=== PATIENT | female | born 1985 | race Two or more races ===

== ENCOUNTER 2017-09-17 16:16 | Emergency (ER) | payer MEDICAID, OTHER, SELFPAY ==
[~2017-09-17] VITALS: Ht 154.9 cm; Wt 98.0 kg
[2017-09-17 16:17] VITALS: BP 135/90
[2017-09-17] MEDS ORDERED: FAMOTIDINE 20 MG TABLET PO ONE (17:00)
[2017-09-17] MEDS ORDERED: DIPHENHYDRAMINE 25 MG CAPSULE PO ONE (17:00)
[2017-09-17] MEDS ORDERED: FAMOTIDINE 20 MG TABLET ONE (17:08)
[2017-09-17] MEDS ORDERED: DIPHENHYDRAMINE 25 MG CAPSULE ONE (17:08)
[2017-09-17] MEDS ORDERED: EPINEPHRINE 1 MG/ML, 1ML ONE (17:28)
[2017-09-17] MEDS ORDERED: EPINEPHRINE 1 MG/ML, 1ML IM ONE (18:00)
== END 2017-09-17 18:59 | disposition home or self-care (01) ==
LOC: ED 18:28
DX: T78.3XXA Angioneurotic edema, initial encounter (principal); X58.XXXA Exposure to other specified factors, initial encounter; Y93.89 Activity, other specified; Y92.89 Other specified places as the place of occurrence of the external cause; Y99.8 Other external cause status
CPT/HCPCS: 96372; 99283; J0171; Q0163

== ENCOUNTER 2017-09-18 10:38 | Emergency (ER) | payer MEDICAID ==
[~2017-09-18] VITALS: Ht 154.9 cm; Wt 99.0 kg
[2017-09-18] MEDS ORDERED: EPINEPHRINE 1 MG/ML, 1ML IM ONE (11:30)
[2017-09-18] MEDS ORDERED: SODIUM CHLORIDE FLUSH 10ML SYR IVF ONE (11:30)
[2017-09-18] MEDS ORDERED: DIPHENHYDRAMINE 50 MG/ML, 1ML IVPush ONE (11:30)
[2017-09-18] MEDS ORDERED: FAMOTIDINE 20 MG/2 ML IVPush ONE (11:30)
[2017-09-18] MEDS ORDERED: EPINEPHRINE 1 MG/ML, 1ML ONE (11:35)
[2017-09-18] MEDS ORDERED: FAMOTIDINE 20 MG/2 ML ONE (11:35)
[2017-09-18] MEDS ORDERED: DIPHENHYDRAMINE 50 MG/ML, 1ML ONE (11:35)
[2017-09-18 11:49] LABS: HEMATOCRIT 48.8 % (34.6-47.8); HEMOGLOBIN 16.9 g/dL (11.7-16.4); WHITE BLOOD COUNT 20.6 x10^3/uL (3.4-10)
[2017-09-18 11:58] LABS: BLOOD UREA NITROGEN 14 mg/dL (7-18)
[2017-09-18] MEDS ORDERED: OMNIPAQUE 350 MG/ML, 75ML BOTTLE ONE (12:06)
[2017-09-18 13:28] VITALS: BP 107/62
== END 2017-09-18 13:38 | disposition home or self-care (01) ==
LOC: ED 11:02
DX: T78.3XXA Angioneurotic edema, initial encounter (principal); E78.5 Hyperlipidemia, unspecified; J45.909 Unspecified asthma, uncomplicated; Z88.0 Allergy status to penicillin; Z88.1 Allergy status to other antibiotic agents; Z88.5 Allergy status to narcotic agent; Z88.6 Allergy status to analgesic agent; X58.XXXA Exposure to other specified factors, initial encounter; Y93.89 Activity, other specified; Y99.8 Other external cause status; Y92.89 Other specified places as the place of occurrence of the external cause
CPT/HCPCS: 36415; 70487; 80048; 82040; 85025; 96372; 96374; 96375; 99285; J0171; J1200; J7512; Q9967; S0028

== ENCOUNTER 2020-05-15 00:03 | Emergency (ER) | payer MEDICAID ==
[~2020-05-15] VITALS: Ht 157.5 cm; Wt 92.0 kg
--- NOTE | 2020-05-15 00:47 | NUR ---
PT CAME INTO ED TODAY DUE TO INCREASED VERTIGO, PT STATES THEY HAVE HAD VERTIGO FOR ALMOST A MONTH AND SHE IS "SUPER DIZZY". PT STATES IF GOT WORSE TONIGHT. PT STATES SHE HAS ALSO HAD CONSTIPATION FOR THE PAST WEEK AND HER ENTIRE STOMACH HURTS. PT REPORTS LAST BM WAS A TINY NUGGET THIS AM. PT ABDOMINAL REGION IS SLIGHTLY FIRM. PT ALSO STATES THAT HER ANXIETY HAS BEEN SUPER HIGH AND SHE IS "FEELING WEIRD". PT IS NAD, VSS, SKIN COLOR WNL WARM AND DRY. PT PLACED ON SPO2/BP/ECG MONITORING.
--- NOTE | 2020-05-15 00:54 | NUR ---
PT TO RADIOLOGY VIA [facility], CONDITION UNCHANGED.
[2020-05-15] MEDS ORDERED: DIAZEPAM 5 MG/ML, 2ML ONE (00:57)
[2020-05-15] MEDS ORDERED: METOCLOPRAMIDE 5 MG/ML, 2ML ONE (00:57)
[2020-05-15] MEDS ORDERED: METOCLOPRAMIDE 5 MG/ML, 2ML IVPush ONE (01:00)
[2020-05-15] MEDS ORDERED: DIAZEPAM 5 MG/ML, 2ML IVPush ONE (01:00)
[2020-05-15] MEDS ORDERED: SODIUM CHLORIDE FLUSH 10ML SYR IVF ONE ×2 (01:00)
[2020-05-15 01:26] LABS: BASOPHILS # (AUTO) 0.04 x10^3/uL (0-0.1); BASOPHILS % (AUTO) 0 % (0-1); EOSINOPHILS # (AUTO) 0.16 x10^3/uL (0-0.4); EOSINOPHILS % (AUTO) 2 % (1-7); LYMPHOCYTES # (AUTO) 2.07 x10^3/uL (1-3.4); LYMPHOCYTES % (AUTO) 23 % (22-44); MD NO; MEAN CORPUSCULAR HEMOGLOBIN 34.5 pg (27.0-34.8); MEAN CORPUSCULAR HGB CONC 34.8 g/dL (32.4-35.8); MONOCYTES # (AUTO) 0.47 x10^3/uL (0.2-0.8); MONOCYTES % (AUTO) 5 % (2-9); NEUTROPHILS # (AUTO) 6.45 x10^3/uL (1.8-6.8); NEUTROPHILS % (AUTO) 70 % (42-75); PLATELET COUNT 251 x10^3/uL (130-400); RED BLOOD COUNT 4.71 x10^6/uL (3.82-5.3); RED CELL DISTRIBUTION WIDTH 12.9 % (9.6-15.2)
[2020-05-15 01:37] LABS: ALANINE AMINOTRANSFERASE 55 U/L (12-78); ALBUMIN 3.6 g/dL (3.4-5.0); ANION GAP 7 mmol/L (5-15); CALCIUM 8.9 mg/dL (8.5-10.1); CHLORIDE 109 mmol/L (98-107); CREATININE 0.92 mg/dL (0.55-1.02)
[2020-05-15 01:42] LABS: ALKALINE PHOSPHATASE 103 U/L (45-117); BILIRUBIN,TOTAL 0.4 mg/dL (0.2-1.0); TOTAL PROTEIN 8.5 g/dL (6.4-8.2); TROPONIN I < 0.015 ng/mL (0.000-0.045)
--- NOTE | 2020-05-15 02:30 | NUR ---
need IV FOR CTA CHEST.
[2020-05-15] MEDS ORDERED: OMEP-110 PO (02:32)
[2020-05-15] MEDS ORDERED: ALBU18HF INH (02:32)
[2020-05-15] MEDS ORDERED: AMIT50TA PO (02:32)
[2020-05-15] MEDS ORDERED: ALPR0.5T7 PO (02:32)
[2020-05-15] MEDS ORDERED: ONDA4TAB7 PO (02:32)
[2020-05-15] MEDS ORDERED: MAGNESIUM CITRATE 300ML ORAL SOL PO ONE (03:00)
--- NOTE | 2020-05-15 03:05 | NUR ---
CT CALLED FOR PT PT NOW HAS USABLE LINE FOR CTA. PT NAD, RESTING IN [facility]. WCTM.
[2020-05-15] MEDS ORDERED: OMNIPAQUE 350 MG/ML, 75ML BOTTLE ONE (03:19)
--- NOTE | 2020-05-15 03:54 | NUR ---
PT RESTING IN [facility], [facility], NO CHANGE IN CONDITION, AMBULATED TO AND FROM RESTROOM WITH A SMOOTH AND STEADY GAIT. PT MEDICATED PER DEC. WCTM.
[2020-05-15] MEDS ORDERED: MAGNESIUM CITRATE 300ML ORAL SOL ONE (03:58)
[2020-05-15 04:53] VITALS: BP 126/67
--- NOTE | 2020-05-15 04:55 | NUR ---
Patient/SPOUSE given discharge instructions and they have confirmed that they understand the instructions. Patient ambulatory with steady gait. DENIES ADDITIONAL NEEDS OR QUESTIONS AT THIS TIME, NAD, P/W/D, VSS. NO PT BELONGINGS LEFT IN ROOM AFTER DC.
== END 2020-05-15 04:56 | disposition home or self-care (01) ==
LOC: ED 01:20
DX: R42 Dizziness and giddiness (principal); R07.89 Other chest pain; F41.9 Anxiety disorder, unspecified; K59.00 Constipation, unspecified; R00.0 Tachycardia, unspecified; R94.31 Abnormal electrocardiogram [ECG] [EKG]; J45.909 Unspecified asthma, uncomplicated; E78.5 Hyperlipidemia, unspecified
CPT/HCPCS: 36415; 71275; 74022; 80053; 84484; 84703; 85025; 85379; 93005; 96374; 99285; J2765; Q9967

== ENCOUNTER 2020-08-19 15:42 | Emergency (ER) | payer MEDICAID ==
[~2020-08-19] VITALS: Ht 157.5 cm; Wt 82.3 kg
[~2020-08-19 15:42] MED LIST: ALBU18HF INH; ALPR0.5T7 PO; AMIT50TA PO; OMEP-110 PO; ONDA4TAB7 PO
[2020-08-19 16:13] VITALS: BP 129/94
[2020-08-19 16:35] LABS: BASOPHILS % (AUTO) 1 % (0-1); EOSINOPHILS % (AUTO) 2 % (1-7); LYMPHOCYTES % (AUTO) 24 % (22-44); MD NO; MEAN CORPUSCULAR HEMOGLOBIN 32.6 pg (27.0-34.8); MEAN CORPUSCULAR HGB CONC 33.8 g/dL (32.4-35.8); MEAN PLATELET VOLUME 10.2 fL (7.4-10.4); MONOCYTES % (AUTO) 7 % (2-9); NEUTROPHILS % (AUTO) 66 % (42-75); PLATELET COUNT 214 x10^3/uL (130-400); RED BLOOD COUNT 5.05 x10^6/uL (3.82-5.3); RED CELL DISTRIBUTION WIDTH 13.1 % (9.6-15.2)
[2020-08-19 16:42] LABS: ALANINE AMINOTRANSFERASE 25 U/L (12-78); ALBUMIN 3.8 g/dL (3.4-5.0); ANION GAP 12 mmol/L (5-15); CALCIUM 9.3 mg/dL (8.5-10.1); CHLORIDE 107 mmol/L (98-107); CREATININE 0.78 mg/dL (0.55-1.02)
[2020-08-19 16:45] LABS: ALKALINE PHOSPHATASE 75 U/L (45-117); BILIRUBIN,TOTAL 0.5 mg/dL (0.2-1.0); TOTAL PROTEIN 7.7 g/dL (6.4-8.2)
--- NOTE | 2020-08-19 17:07 | NUR ---
PT UP TO RESTROOM AND BACK WITH STEADY INDEPENDENT GAIT. DENIES ANY NEEDS OR CONCERNS. CALL LIGHT IN REACH.
== END 2020-08-19 17:44 | disposition home or self-care (01) ==
LOC: ED 17:15
DX: K11.7 Disturbances of salivary secretion (principal); R00.0 Tachycardia, unspecified; J45.909 Unspecified asthma, uncomplicated; E78.5 Hyperlipidemia, unspecified; Z90.89 Acquired absence of other organs; Z88.0 Allergy status to penicillin; Z88.2 Allergy status to sulfonamides; Z88.5 Allergy status to narcotic agent; Z88.1 Allergy status to other antibiotic agents
CPT/HCPCS: 36415; 80053; 85025; 93005; 99284

== ENCOUNTER 2020-11-23 09:39 | Emergency (ER) | payer MEDICAID ==
[~2020-11-23] VITALS: Ht 154.9 cm; Wt 78.5 kg
[2020-11-23] MEDS ORDERED: KETOROLAC 30 MG/1 ML ONE (10:07)
--- NOTE | 2020-11-23 10:12 | NUR ---
PT MEDICATED PER EMAR. PT AWAKE AND ALERT. RESTING ON GURNEY W/ CALL LIGHT IN REACH AND FAMILY AT BEDSIDE. RESP EVEN AND UNLABORED, BRANDY.
[2020-11-23 10:30] VITALS: BP 107/60
[2020-11-23] MEDS ORDERED: KETOROLAC 30 MG/1 ML IM ONE (10:30)
--- NOTE | 2020-11-23 10:33 | NUR ---
Patient given discharge instructions and they have confirmed that they understand the instructions. Patient ambulatory with steady gait.
== END 2020-11-23 10:35 | disposition home or self-care (01) ==
LOC: ED 10:07
DX: K08.89 Other specified disorders of teeth and supporting structures (principal); E78.5 Hyperlipidemia, unspecified; J45.909 Unspecified asthma, uncomplicated; Z88.0 Allergy status to penicillin
CPT/HCPCS: 96372; 99283; J1885